=== PATIENT | female | born 1975 | race Caucasian/White ===

== ENCOUNTER 2021-03-13 11:00 | Outpatient (REF) | payer OTHER, SELFPAY ==
[2021-03-13 11:03] LABS: MANUAL DIFF FLAG NO
[2021-03-13 11:18] LABS: Basophils Percent Auto 0.6 % (0-2); Eosinophils Absolute Auto 0.2 X10*3/uL (0.0-0.4); Eosinophils Percent Auto 5.5 % (0-4); Hematocrit 38.4 % (37.0-47.0); Hemoglobin 12.9 g/dl (12.0-16.0); Imm Gran Abs Auto 0.01 X10*3/uL (0.00-0.03); Imm Gran Pct Auto 0.3 % (0.0-0.4); Lymphocytes Absolute Auto 1.3 X10*3/uL (1.2-4.9); Lymphocytes Percent Auto 38.3 % (20-40); Mean Corpuscular HGB Conc 33.6 g/dl (31.0-35.0); Mean Corpuscular Hemoglobin 33.9 pg (27.0-33.0); Mean Corpuscular Volume 100.8 fL (80.0-98.0); Mean Platelet Volume 9.5 fL (9.4-12.3); Monocytes Absolute Auto 0.3 X10*3/uL (0.1-1.2); Monocytes Percent Auto 8.1 % (2-11); Neutrophils Absolute Auto 1.6 x10*3/uL (2.0-8.3); Neutrophils Percent Auto 47.2 % (45-73); Platelet Count 258 X10*3/uL (160-400); Red Blood Count 3.81 X10*6/uL (4.20-5.50); Red Cell Distribution Width 11.9 % (11.0-16.0); White Blood Count 3.5 X10*3/uL (4.8-10.8)
[2021-03-13 11:36] LABS: Estimated Average Glucose 94 mg/dL; Hemoglobin A1c % 4.9 %
[2021-03-13 11:45] LABS: Appearance Urine CLEAR; Color Urine YELLOW; Glucose Urine UA NEG (NEG); Leukocyte Esterase Urine NEG (NEG); Nitrite Urine NEG (NEG); PH 7.5 (5.0-8.0); Urine Blood TRACE (NEG); Urine Ketones NEG (NEG); Urine Protein NEG (NEG-TRACE)
[2021-03-13 11:46] LABS: Alanine Aminotransferase 36 U/L (0-31); Albumin Level 3.9 g/dL (3.5-5.0); Alkaline Phosphatase 47 U/L (39-117); Anion Gap 9 (12-20); Aspartate Amino Transferase 26 U/L (5-31); Bilirubin Total 0.6 mg/dL (0.0-1.0); Blood Urea Nitrogen 7 mg/dL (9-16); Calcium 9.3 mg/dL (8.4-10.2); Carbon Dioxide 28 mmol/L (22-29); Chloride 105 mmol/L (96-108); Cholesterol 211 mg/dL; Creatinine Urine 192.23 mg/dL; Estimated Glomerular Filt Rate > 60; Glucose Fasting 101 mg/dL (60-99); HDL Cholesterol 74 mg/dL; LDL Cholesterol Calculated 126 mg/dl; Microalbum/Creatinine Ratio Ur 4.6 ug/mg cr; Potassium 4.3 mmol/L (3.3-5.1); Sodium 138 mmol/L (135-145); Total Protein 6.4 g/dL (6.5-8.0); Triglycerides 55 mg/dL
[2021-03-13 11:59] LABS: RBC Urine 0-2 /HPF (0); Squamous Epithelial Cell Urine TRACE /LPF; WBC Urine 0-2 /HPF (0-4)
[2021-03-13 12:00] LABS: Mucus Urine 1+ /LPF
== END 2021-03-13 11:01 | disposition home or self-care (01) ==
LOC: HO.LNP 11:00
PROVIDERS: Visit Provider Internal Medicine
DX: Z00.00 Encounter for general adult medical examination without abnormal findings (principal); R73.09 Other abnormal glucose; D72.820 Lymphocytosis (symptomatic)
CPT/HCPCS: 80053; 80061; 81001; 82043; 83036; 85025

== ENCOUNTER 2021-03-17 10:10 | Outpatient (REF) | payer OTHER, SELFPAY ==
[2021-03-17 10:13] LABS: MANUAL DIFF FLAG NO
[2021-03-17 10:24] LABS: Basophils Percent Auto 0.6 % (0-2); Eosinophils Absolute Auto 0.2 X10*3/uL (0.0-0.4); Eosinophils Percent Auto 4.6 % (0-4); Hematocrit 38.7 % (37.0-47.0); Hemoglobin 13.3 g/dl (12.0-16.0); Imm Gran Abs Auto 0.01 X10*3/uL (0.00-0.03); Imm Gran Pct Auto 0.3 % (0.0-0.4); Lymphocytes Absolute Auto 1.2 X10*3/uL (1.2-4.9); Mean Corpuscular HGB Conc 34.4 g/dl (31.0-35.0); Mean Corpuscular Hemoglobin 34.3 pg (27.0-33.0); Mean Corpuscular Volume 99.7 fL (80.0-98.0); Mean Platelet Volume 9.2 fL (9.4-12.3); Monocytes Absolute Auto 0.3 X10*3/uL (0.1-1.2); Monocytes Percent Auto 9.5 % (2-11); Neutrophils Absolute Auto 1.5 x10*3/uL (2.0-8.3); Platelet Count 276 X10*3/uL (160-400); Red Blood Count 3.88 X10*6/uL (4.20-5.50); Red Cell Distribution Width 11.8 % (11.0-16.0); White Blood Count 3.3 X10*3/uL (4.8-10.8)
== END 2021-03-17 10:11 | disposition home or self-care (01) ==
LOC: HO.LNP 10:10
PROVIDERS: Visit Provider Internal Medicine
DX: D72.820 Lymphocytosis (symptomatic) (principal)
CPT/HCPCS: 85025

== ENCOUNTER → 2021-03-23 13:48 | Outpatient (BNVA) | payer OTHER, SELFPAY | PROVIDERS: PCP Internal Medicine; Referring Provider Internal Medicine; Visit Provider Internal Medicine | DX: R07.2 Precordial pain (principal) | CPT/HCPCS: 93005 ==

== ENCOUNTER 2021-04-13 11:33 | Outpatient (REF) | payer OTHER, SELFPAY ==
[2021-04-13 11:36] LABS: MANUAL DIFF FLAG NO
[2021-04-13 11:55] LABS: Basophils Percent Auto 0.7 % (0-2); Eosinophils Absolute Auto 0.1 X10*3/uL (0.0-0.4); Eosinophils Percent Auto 3.6 % (0-4); Hematocrit 38.3 % (37.0-47.0); Hemoglobin 12.8 g/dl (12.0-16.0); Lymphocytes Absolute Auto 1.2 X10*3/uL (1.2-4.9); Lymphocytes Percent Auto 39.1 % (20-40); Mean Corpuscular HGB Conc 33.4 g/dl (31.0-35.0); Mean Corpuscular Hemoglobin 33.6 pg (27.0-33.0); Mean Corpuscular Volume 100.5 fL (80.0-98.0); Mean Platelet Volume 9.4 fL (9.4-12.3); Monocytes Absolute Auto 0.3 X10*3/uL (0.1-1.2); Monocytes Percent Auto 9.4 % (2-11); Neutrophils Absolute Auto 1.5 x10*3/uL (2.0-8.3); Neutrophils Percent Auto 47.2 % (45-73); Platelet Count 276 X10*3/uL (160-400); Red Blood Count 3.81 X10*6/uL (4.20-5.50); Red Cell Distribution Width 11.9 % (11.0-16.0); White Blood Count 3.1 X10*3/uL (4.8-10.8)
== END 2021-04-13 11:34 | disposition home or self-care (01) ==
LOC: HO.LNP 11:33
PROVIDERS: PCP Internal Medicine; Visit Provider Internal Medicine
DX: D72.820 Lymphocytosis (symptomatic) (principal)
CPT/HCPCS: 85025

== ENCOUNTER → 2021-05-03 09:23 | Outpatient (REF) | payer OTHER, SELFPAY ==
--- NOTE | 2021-05-03 09:26 | CA_ITS ---
Acquisition Time: 2021-05-03 10:25:24 Total Exercise Time: 00:11:56 Test Indications: Chest Pain Medications: PAROXITINE BUPROPION Protocol: VJ Max HR: 173 BPM 98% of Pred: 176 BPM Max BP: 122/058 mmHG Max Work Load: 13.7 METS Exercise tress test with exercise 11 min 56 sec of Vj protocol, without anginal symptoms, with isolated PVC, with blunted BP response to exercise with max BP 116/40 during exercise, without EKG changes meeting criteria for ischemia. Test reviewed with Dr Mariee. Referred By: Wilfred Maguire Overread By: ALIN CASTELAN
== END ==
LOC: HO.CARD 09:23
PROVIDERS: PCP Internal Medicine; Visit Provider Internal Medicine
DX: R07.2 Precordial pain (principal)
CPT/HCPCS: 93017

== ENCOUNTER → 2021-05-05 13:57 | Outpatient (REF) | payer OTHER, SELFPAY ==
--- NOTE | 2021-05-05 13:59 | CA_ITS ---
Transthoracic Echocardiogram Patient (Last, First, Middle): Nava Diaz, Gender: Female Date of : 1975 Age: 45 Procedure Date: 05/05/2021 Procedure Type: Transthoracic Echocardiogram Location: OP Height: 180.34 cm Weight: 79.38 kg BSA: 1.99 m2 Heart Rate: bpm BP: 98 / 64 mmHg Reimbursement Director: BAHMAN Referring MD: Wilfred Maguire MD Symptoms: R07.2 - Precordial pain Study Quality: Fair Conclusions: - Normal left ventricular size, thickness, systolic function, and wall motion. The visually estimated ejection fraction is between 55-60%. - Normal right ventricular cavity size and systolic function. Findings Left Ventricle Normal left ventricular size, thickness, systolic function, and wall motion. The visually estimated ejection fraction is between 55-60%. Diastolic function is normal for age. Right Ventricle Normal right ventricular cavity size and systolic function. Atria Both atria are normal in size. Aortic Valve Normal aortic valve structure and function. There is no aortic valve stenosis. There is no aortic valve regurgitation. Mitral Valve Normal mitral valve structure and function. There is no mitral valve regurgitation. There is no mitral valve stenosis. Pulmonic Valve The pulmonic valve is likely normal. Tricuspid Valve Normal tricuspid valve structure and function. There is trace tricuspid valve regurgitation. Normal right atrial pressure. There is no evidence of pulmonary hypertension. Great Vessels All visible segments of the aorta are normal in size. The visualized portions of the pulmonary artery and branches are normal. Venous The inferior vena cava is normal in size and collapses greater than 50% with inspiration. Pericardium/Pleural There is no evidence of pericardial effusion. Prior Study Comparison No prior study available for comparison. Measurements 2D Linear Measurements IVSd: 0.61 0.6-0.9/0.6-1.0 cm LVIDd: 5.99 3.9-5.3/4.2-5.9 cm LVIDd Index: 3.01 2.4-3.2/2.2-3.1 cm/m2 LVIDs: 4.32 2.0-3.6 cm LVPWd: 0.62 0.7-1.1 cm LA Diam: 3.10 2.7-3.8/3.0-4.0 cm LAIDs Index: 1.56 1.5-2.3 cm/m2 LV Mass: 168.23 67-162/88-224 g LV Mass Index: 84.54 43-95/49-115 g/m2 LVOT Diam: 2.10 3.0+(-)1.3 cm 2D Systolic Function EF 4C: 65.60 >55% EF 2C: 63.10 >55% EF BiP: 64.40 >55% Mitral Valve MV Pk E: 0.76 MV PK A: 0.62 MV Decel Time: 211.00 E/A: 1.20 E'Lateral: 11.10 E'Medial: 9.79 E/E' Med: 7.80 E/E' Lat: 6.80 PHT: 62.00 MVA PHT: 3.55 Decel Pasco: 3.60 Aortic Valve AoV Pk Dio: 1.40 AoV Mn Dio: 1.03 AoV VTI: 0.35 AoV Pk Grad: 8.00 Aov Mn Grad: 5.00 YUNI Cont.VTI: 2.20 LVOT LVOT Pk Dio: 0.94 LVOT Mn Dio: 0.67 LVOT VTI: 0.22 LVOT Pk Grad: 4.00 LVOT Mn Grad: 2.00 LVOT Diam: 2.10 LVOT Area: 3.46 Diastolic Function MV Pk E: 0.76 MV Pk A: 0.62 E/A: 1.20 E'Medial: 9.79 E/E' Med: 7.80 E' Laterial: 11.10 E/E' Lat: 6.80 Right Ventricle TAPSE (mm): 21.20 TVS' Dio: 11.90 Tricuspid Valve TR Pk Dio: 1.97 TR Pk Grad: 16.00 RA Press: 3.00 RVSP: 19.00 Great Vessels Aorta Sinus of Valsalva: 3.20 2.0-3.5 cm Ao Asc: 2.80 2.1-3.4 cm Ao Arch: 3.10 Updated in Other Vendor System with Status of Final Ramin Mariee MD electronically signed on 05/06/2021 4:24:17 PM with status of Final
== END ==
LOC: HO.CARD 13:57
PROVIDERS: PCP Internal Medicine; Visit Provider Internal Medicine
DX: R07.2 Precordial pain (principal)
CPT/HCPCS: 93306

== ENCOUNTER → 2021-05-31 12:39 | Outpatient (BNVA) | payer OTHER, SELFPAY | PROVIDERS: PCP Internal Medicine; Referring Provider Internal Medicine; Visit Provider Internal Medicine | DX: Z13.89 Encounter for screening for other disorder (principal) ==

== ENCOUNTER 2022-10-26 12:07 | Outpatient (REF) | payer OTHER, SELFPAY ==
[2022-10-26 12:14] LABS: MANUAL DIFF FLAG NO
[2022-10-26 12:21] LABS: Basophils Percent Auto 0.7 % (0-2); Eosinophils Absolute Auto 0.2 X10*3/uL (0.0-0.4); Eosinophils Percent Auto 4.1 % (0-4); Hematocrit 39.3 % (37.0-47.0); Hemoglobin 13.3 g/dl (12.0-16.0); Lymphocytes Absolute Auto 1.5 X10*3/uL (1.2-4.9); Lymphocytes Percent Auto 36.3 % (20-40); Mean Corpuscular HGB Conc 33.8 g/dl (31.0-35.0); Mean Corpuscular Hemoglobin 33.4 pg (27.0-33.0); Mean Corpuscular Volume 98.7 fL (80.0-98.0); Mean Platelet Volume 9.2 fL (9.4-12.3); Monocytes Absolute Auto 0.4 X10*3/uL (0.1-1.2); Monocytes Percent Auto 8.5 % (2-11); Neutrophils Absolute Auto 2.1 x10*3/uL (2.0-8.3); Neutrophils Percent Auto 50.4 % (45-73); Platelet Count 274 X10*3/uL (160-400); Red Blood Count 3.98 X10*6/uL (4.20-5.50); Red Cell Distribution Width 11.9 % (11.0-16.0); White Blood Count 4.1 X10*3/uL (4.8-10.8)
[2022-10-26 12:44] LABS: Appearance Urine Clear; Color Urine Yellow; Glucose Urine UA Negative (Negative); Leukocyte Esterase Urine Trace (Negative); Nitrite Urine Negative (Negative); Specific Gravity - Urine 1.015 (1.005-1.025); UMIC TRIGGER UACC YES; Urine Blood Large (3+) (Negative); Urine Ketones Negative (Negative); Urine Protein Negative (Neg-Trace)
[2022-10-26 12:47] LABS: Estimated Average Glucose 91 mg/dL; Hemoglobin A1c % 4.8 % (<6.0)
[2022-10-26 12:54] LABS: Bacteria Urine None Seen (None Seen); Hyaline Casts Urine 0-2 /LPF (0-2); WBC Urine 0-5 /HPF (0-5)
[2022-10-26 13:06] LABS: Creatinine Urine 108.23 mg/dL; Microalbum/Creatinine Ratio Ur 5.5 ug/mg cr (<30)
[2022-10-26 13:22] LABS: Alanine Aminotransferase 20 U/L (0-31); Albumin Level 3.8 g/dL (3.5-5.0); Alkaline Phosphatase 51 U/L (39-117); Anion Gap 10 (12-20); Aspartate Amino Transferase 21 U/L (5-31); Bilirubin Total 0.7 mg/dL (0.0-1.0); Blood Urea Nitrogen 8 mg/dL (9-16); Carbon Dioxide 26 mmol/L (22-29); Chloride 107 mmol/L (96-108); Cholesterol 213 mg/dL (<200); Estimated Glomerular Filt Rate > 60; Glucose Fasting 97 mg/dL (60-99); HDL Cholesterol 79 mg/dL (>40); LDL Cholesterol Calculated 120 mg/dL (<100); Potassium 4.2 mmol/L (3.3-5.1); Sodium 139 mmol/L (135-145); Total Protein 6.6 g/dL (6.5-8.0); Triglycerides 71 mg/dL (<150)
== END 2022-10-26 12:08 | disposition home or self-care (01) ==
LOC: HO.LNP 12:07
PROVIDERS: Visit Provider Internal Medicine
DX: Z00.00 Encounter for general adult medical examination without abnormal findings (principal); R73.03 Prediabetes; D72.820 Lymphocytosis (symptomatic)
CPT/HCPCS: 80053; 80061; 81001; 82043; 83036; 85025

== ENCOUNTER 2022-11-02 15:47 | Outpatient (REF) | payer OTHER, SELFPAY ==
[2022-11-02 15:55] LABS: Appearance Urine Clear; Color Urine Yellow; Glucose Urine UA Negative (Negative); Leukocyte Esterase Urine Negative (Negative); Nitrite Urine Negative (Negative); Urine Blood Negative (Negative); Urine Ketones Negative (Negative); Urine Protein Negative (Neg-Trace)
[2022-11-02 15:59] LABS: Bacteria Urine Trace (None Seen); Hyaline Casts Urine 0-2 /LPF (0-2); RBC Urine 0-2 /HPF (0-2); WBC Urine 0-5 /HPF (0-5)
== END 2022-11-02 15:48 | disposition home or self-care (01) ==
LOC: HO.LNP 15:47
PROVIDERS: Visit Provider Internal Medicine
DX: R31.0 Gross hematuria (principal)
CPT/HCPCS: 81001

== ENCOUNTER 2023-11-01 10:54 | Outpatient (REF) | payer OTHER, SELFPAY ==
[2023-11-01 11:01] LABS: MANUAL DIFF FLAG NO
[2023-11-01 11:27] LABS: Basophils Percent Auto 1.1 % (0-2); Eosinophils Absolute Auto 0.2 X10*3/uL (0.0-0.4); Eosinophils Percent Auto 4.1 % (0-4); Hematocrit 39.4 % (37.0-47.0); Hemoglobin 13.5 g/dl (12.0-16.0); Imm Gran Abs Auto 0.01 X10*3/uL (0.00-0.03); Imm Gran Pct Auto 0.3 % (0.0-0.4); Lymphocytes Absolute Auto 1.4 X10*3/uL (1.2-4.9); Lymphocytes Percent Auto 37.8 % (20-40); Mean Corpuscular HGB Conc 34.3 g/dl (31.0-35.0); Mean Corpuscular Hemoglobin 33.9 pg (27.0-33.0); Mean Platelet Volume 9.2 fL (9.4-12.3); Monocytes Absolute Auto 0.4 X10*3/uL (0.1-1.2); Monocytes Percent Auto 11.1 % (2-11); Neutrophils Absolute Auto 1.7 x10*3/uL (2.0-8.3); Neutrophils Percent Auto 45.6 % (45-73); Platelet Count 237 X10*3/uL (160-400); Red Blood Count 3.98 X10*6/uL (4.20-5.50); White Blood Count 3.7 X10*3/uL (4.8-10.8)
[2023-11-01 11:41] LABS: Alanine Aminotransferase 14 U/L (0-31); Albumin Level 3.9 g/dL (3.5-5.0); Alkaline Phosphatase 49 U/L (39-117); Anion Gap 8 (12-20); Aspartate Amino Transferase 16 U/L (5-31); Bilirubin Total 0.7 mg/dL (0.0-1.0); Blood Urea Nitrogen 8 mg/dL (9-16); Calcium 9.1 mg/dL (8.4-10.2); Carbon Dioxide 29 mmol/L (22-29); Chloride 106 mmol/L (96-108); Cholesterol 254 mg/dL (<200); Estimated Glomerular Filt Rate > 60; Glucose Fasting 103 mg/dL (60-99); HDL Cholesterol 76 mg/dL (>40); LDL Cholesterol Calculated 166 mg/dL (<100); Potassium 3.9 mmol/L (3.3-5.1); Sodium 139 mmol/L (135-145); Total Protein 6.5 g/dL (6.5-8.0); Triglycerides 64 mg/dL (<150)
[2023-11-01 11:52] LABS: Appearance Urine Clear; Color Urine Yellow; Glucose Urine UA Negative (Negative); Leukocyte Esterase Urine Small (1+) (Negative); Nitrite Urine Negative (Negative); PH 7.5 (5.0-9.0); Specific Gravity - Urine 1.015 (1.005-1.025); UMIC TRIGGER UACC YES; Urine Blood Negative (Negative); Urine Ketones Negative (Negative); Urine Protein Negative (Neg-Trace)
[2023-11-01 12:05] LABS: Bacteria Urine 1+ (None Seen); Hyaline Casts Urine 0-2 /LPF (0-2); RBC Urine 0-2 /HPF (0-2); UACC Culture Trigger YES; WBC Urine 0-5 /HPF (0-5)
[2023-11-01 15:19] LABS: Estimated Average Glucose 94 mg/dL; Hemoglobin A1c % 4.9 % (<6.0)
[2023-11-01 15:23] LABS: Creatinine Urine 139.43 mg/dL; Microalbumin Urine < 5.0 mg/L
== END 2023-11-01 10:55 | disposition home or self-care (01) ==
LOC: HO.LNP 10:54
PROVIDERS: Visit Provider Internal Medicine
DX: Z00.00 Encounter for general adult medical examination without abnormal findings (principal); R73.09 Other abnormal glucose; D72.820 Lymphocytosis (symptomatic); R82.90 Unspecified abnormal findings in urine
CPT/HCPCS: 80053; 80061; 81001; 82043; 82570; 83036; 85025; 87086

== ENCOUNTER 2024-12-21 10:22 | Outpatient (REF) | payer OTHER, SELFPAY ==
[2024-12-21 10:25] LABS: MANUAL DIFF FLAG NO
[2024-12-21 10:57] LABS: Appearance Urine Clear; Glucose Urine UA Negative (Negative); PH 8.0 (5.0-9.0); Specific Gravity - Urine 1.015 (1.005-1.025); UMIC TRIGGER UACC YES
[2024-12-21 11:03] LABS: Hematocrit 39.4 % (37.0-47.0); Hemoglobin 13.3 g/dl (12.0-16.0); Imm Gran Abs Auto 0.01 X10*3/uL (0.00-0.03); Imm Gran Pct Auto 0.3 % (0.0-0.4); Lymphocytes Absolute Auto 1.3 X10*3/uL (1.2-4.9); Mean Corpuscular HGB Conc 33.8 g/dl (31.0-35.0); Mean Corpuscular Hemoglobin 32.8 pg (27.0-33.0); Mean Corpuscular Volume 97.3 fL (80.0-98.0); NRBC Abs Auto 0.000 X10*3/uL (0.0-0.012); NRBC Pct Auto 0.0 /100WBC (0.0-0.2); Platelet Count 274 X10*3/uL (160-400); Red Blood Count 4.05 X10*6/uL (4.20-5.50); White Blood Count 3.4 X10*3/uL (4.8-10.8)
[2024-12-21 11:14] LABS: Alanine Aminotransferase 17 U/L (0-31); Albumin Level 4.0 g/dL (3.5-5.0); Alkaline Phosphatase 48 U/L (39-117); Anion Gap 12 (12-20); Aspartate Amino Transferase 20 U/L (5-31); Blood Urea Nitrogen 7 mg/dL (9-16); Calcium 8.6 mg/dL (8.4-10.2); Carbon Dioxide 25 mmol/L (22-29); Chloride 105 mmol/L (96-108); Cholesterol 251 mg/dL (<200); Estimated Glomerular Filt Rate > 60; HDL Cholesterol 72 mg/dL (>40); Potassium 4.0 mmol/L (3.3-5.1); Sodium 138 mmol/L (135-145); Total Protein 6.4 g/dL (6.5-8.0); Triglycerides 63 mg/dL (<150)
== END 2024-12-21 10:23 | disposition home or self-care (01) ==
LOC: HO.LNP 10:22
PROVIDERS: Visit Provider Internal Medicine
DX: Z00.00 Encounter for general adult medical examination without abnormal findings (principal); D72.820 Lymphocytosis (symptomatic); R73.09 Other abnormal glucose; Z13.6 Encounter for screening for cardiovascular disorders
CPT/HCPCS: 80053; 80061; 81001; 82043; 82570; 83036; 85025

== ENCOUNTER 2025-02-22 12:44 | Outpatient (AMB) | payer OTHER, SELFPAY ==
--- OUTSIDE RECORDS SUMMARY | 2024-06-01 04:04 | XMS_ITS ---
Author Organization Ambrosio Álvarez MD Address [address] [place] [address] [place] [phone] Care Team Providers Care Injection Molding Technician Name Role Phone Ambrosio Álvarez Primary Care Provider REASON FOR VISIT ER Visit rec'd Encounters Encounter Location Date Provider Diagnosis Ambrosio Álvarez MD [address] [place] [address] [address] [place] [phone] 06/01/2024 Ambrosio Álvarez Plan Of Treatment Next Appt Details Provider Name:Ambrosio Landrum ier, 12/24/2025 07:45:00 AM, [address] [place] [address], [place] [address], [place], [place], [phone], Provider Name:Ambrosio Landrum ier, 12/31/2025 01:00:00 PM, [address] [place] [address], [place] [address], [place], [place], [phone], Progress Notes * Naav DIAZ LDOB: [birth year] (48 yo F)Acc No.[id number]:06/01/2024 Patient: Inessa HILLsilvio Casillas :1975 A ge:48 Y S ex:Female Address:[address] [place], [place] [address] [address] * true * Date: Generated for Printi ng/Faxing/eTransmitting on: 04/25/2024 03:52 PM EST
--- OUTSIDE RECORDS SUMMARY | 2024-06-15 04:00 | XMS_ITS ---
Author Organization Ambrosio Álvarez MD Address [address] [place] [phone] Care Team Providers Care Photogrammetric Surveyor Name Role Phone Ambrosio Álvarez Primary Care Provider REASON FOR VISIT New Refill Request Medications Medication SIG (Take, Route, Frequency, Duration) Notes Start Date End Date Status Valtrex 1 GM 2 tablets Orally twi ce a day for one day only for 1 days 02/23/2011 Active Encounters Encounter Location Date Provider Diagnosis Ambrosio Álvarez MD [address] [place], [place] [address]te [address] [place] [phone] 06/15/2024 Ambrosio Álvarez Plan Of Treatment Medication Medication Name Sig Start Date Stop Date Notes Valtrex 1 GM 2 tablets Orally twi ce a day for one day only for 1 days 02/23/2011 Next Appt Details Provider Name:Ambrosio peterson, 12/24/2025 07:45:00 AM, [address] [place] [address], [phone], Provider Name:Ambrosio peterson, 12/31/2025 01:00:00 PM, [address] [place] [address], [phone], Progress Notes * Nava DIAZ LDOB: [birth year] (48 yo F)Acc No.[id number]:06/15/2024 Patient: Gail LUANNANava :1975 A ge:48 Y S ex:Female Address:[address] [place] [address], [place] [address] * Refills Refill Valtrex Tablet, 1 GM, Orally, 4, 2 tablets, twice a day for one day only, 1 days, Refills=3 * true * Date: Generated for Johnson monreal/Dorota/Carine on: 04/25/2024 03:51 PM EST
--- OUTSIDE RECORDS SUMMARY | 2024-07-01 02:21 | XMS_ITS ---
Author Organization Ambrosio Álvarez MD Address [address] [place] [address] [place] [phone] Care Team Providers Care School Age Teacher Name Role Phone Ambrosio Álvarez Primary Care Provider [phone] REASON FOR VISIT New Referral Request Encounters Encounter Location Date Provider Diagnosis Ambrosio Álvarez MD [address] [place] [address] [place] [phone] 07/01/2024 Ambrosio Álvarez Plan Of Treatment Next Appt Details Provider Name:Ambrosio Landrum ier, 12/24/2025 07:45:00 AM, [address] [place] [address], [place] [address], [place], [place], [phone], Provider Name:Ambrosio Landrum ier, 12/31/2025 01:00:00 PM, [address] [place] [address], [place] [address], [place], [place], [phone], Progress Notes * Nava DIAZ LDOB: [birth year] (48 yo F)Acc No.[id number]:07/01/2024 Patient: Gail DALLASNava :1975 A ge:48 Y S ex:Female Address:[address] [place], [place] [address] [address] * true * Date: Generated for Printi ng/Faxing/eTransmitting on: 04/25/2024 03:51 PM EST
--- OUTSIDE RECORDS SUMMARY | 2024-09-03 09:21 | XMS_ITS ---
Author Organization Ambrosio Álvarez MD Address [address] [place] [address] [place] [phone] Care Team Providers Care Pressing Machine Operator Name Role Phone Ambrosio Álvarez Primary Care Provider REASON FOR VISIT FYI Encounters Encounter Location Date Provider Diagnosis Ambrosio Álvarez MD [address] [place] [address] [address] [place] [phone] 09/03/2024 Ambrosio Álvarez Plan Of Treatment Next Appt Details Provider Name:Ambrosio Landrum ier, 12/24/2025 07:45:00 AM, [address] [place] [address], [place] [address], [place], [place], [phone], Provider Name:Ambrosio Landrum ier, 12/31/2025 01:00:00 PM, [address] [place] [address], [place] [address], [place], [place], [phone], Progress Notes * Nava DIAZ LDOB: [birth year] (49 yo F)Acc No.[id number]:09/03/2024 Patient: Gail DALLASNava :1975 A ge:49 Y S ex:Female Address:[address] [place], [place] [address] [address] * true * Date: Generated for Printi ng/Faxing/eTransmitting on: 04/25/2024 03:52 PM EST
--- OUTSIDE RECORDS SUMMARY | 2024-09-07 05:30 | XMS_ITS ---
Author Organization Ambrosio Álvarez MD Address [address] [place] [address] [place] [phone] Care Team Providers Care Dietary Director Name Role Phone Ambrosio Álvarez Primary Care Provider REASON FOR VISIT RE:Dermatology Appt Encounters Encounter Location Date Provider Diagnosis Ambrosio Álvarez MD [address] [place] [address] [place] [phone] 09/07/2024 Ambrosio Álvarez Plan Of Treatment Next Appt Details Provider Name:Ambrosio Landrum ier, 12/24/2025 07:45:00 AM, [address] [place] [address], [place] [address], [place], [place], [phone], Provider Name:Ambrosio Landrum ier, 12/31/2025 01:00:00 PM, [address] [place] [address], [place] [address], [place], [place], [phone], Progress Notes * Nava DIAZ LDOB: [birth year] (49 yo F)Acc No.[id number]:09/07/2024 Patient: Inessa HILLsilvio Casillas :1975 A ge:49 Y S ex:Female Address:[address] [place], [place] [address] [address] * true * Date: Generated for Printi ng/Faxing/eTransmitting on: 04/25/2024 03:51 PM EST
--- OUTSIDE RECORDS SUMMARY | 2024-12-12 13:27 | XMS_ITS ---
Author Organization Ambrosio Álvarez MD Address [address] [place] [address] [place] [phone] Care Team Providers Care International Logistics Coordinator Name Role Phone Ambrosio Álvarez Primary Care Provider [phone] REASON FOR VISIT rescheduling annual physiccal Encounters Encounter Location Date Provider Diagnosis Ambrosio Álvarez MD [address] [place] [address] [place] [phone] 12/12/2024 Ambrosio Álvarez Plan Of Treatment Next Appt Details Provider Name:Ambrosio Landrum ier, 12/24/2025 07:45:00 AM, [address] [place] [address], [facility], [place], [place], [phone], Provider Name:Ambrosio Landrum ier, 12/31/2025 01:00:00 PM, [address] [place] [address], [place] [address], [place], [place], [phone], Progress Notes * Nava DIAZ LDOB: [birth year] (49 yo F)Acc No.[id number]:12/12/2024 Patient: Inessa HILLsilvio Casillas :1975 A ge:49 Y S ex:Female Address:[address] [place], [place] [address] [address] * true * Date: Generated for Printi ng/Faxing/eTransmitting on: 04/25/2024 03:51 PM EST
--- OUTSIDE RECORDS SUMMARY | 2024-12-21 02:45 | XMS_ITS ---
Author Organization Ambrosio Álvarez MD Address [address] [place], [place] [phone] Care Team Providers Care Textile Machinery Sales Representative Name Role Phone Ambrosio Álvarez Primary Care Provider Results Component Value Reference Range Notes Complete Blood Count Auto Di ff Reviewed date:12/21/2024 05:36:18 PM Interpretation: Performing Lab:[facility], [address] [place] [phone] Notes/Report: White Blood Count 3.4 4.8-10.8 X10*3/uL Red Blood Count 4.05 4.20-5.50 X10*6/uL Hemoglobin 13.3 12.0-16.0 g/dl Hematocrit 39.4 37.0-47.0 % Mean Corpuscular Volume 97.3 80.0-98.0 fL Mean Corpuscular Hemoglobin 32.8 27.0-33.0 pg Mean Corpuscular HGB Conc 33.8 31.0-35.0 g/dl Red Cell Distribution Width 12.0 11.0-16.0 % Platelet Count 274 160-400 X10*3/uL Mean Platelet Volume 9.2 9.4-12.3 fL Neutrophils Percent Auto 48.8 45-73 % Imm Gran Pct Auto 0.3 0.0-0.4 % Lymphocytes Percent Auto 37.9 20-40 % Monocytes Percent Auto 7.7 2-11 % Eosinophils Percent Auto 4.1 0-4 % Basophils Percent Auto 1.2 0-2 % NRBC Pct Auto 0.0 0.0-0.2 /100WBC Neutrophils Absolute Auto 1.7 2.0-8.3 x10*3/u L Imm Gran Abs Auto 0.01 0.00-0.03 X10*3/uL Lymphocytes Absolute Auto 1.3 1.2-4.9 X10*3/u L Monocytes Absolute Auto 0.3 0.1-1.2 X10*3/uL Eosinophils Absolute Auto 0.1 0.0-0.4 X10*3/u L Basophils Absolute Auto 0.0 0.0-0.2 X10*3/uL NRBC Abs Auto 0.000 0.0-0.012 X10*3/uL Comprehensive [place]. Panel Fa st Reviewed date:12/21/2024 12:33:43 PM Interpretation: Performing Lab:[address] [phone] Notes/Report: Sodium 138 135-145 mmol/L Potassium 4.0 3.3-5.1 mmol/L Chloride 105 96-108 mmol/L Carbon Dioxide 25 22-29 mmol/L Anion Gap 12 12-20 Blood Urea Nitrogen 7 9-16 mg/dL Creatinine 0.95 0.5-1.4 mg/dL Estimated Glomerular Filt Rate > 60 Chronic Kidney Disease: Estimated GFR < 60 mL/min/1.73m2 Severe Kidney Disease: Estimated GFR < 15 mL/min/1.73m2 Glucose Fasting 104 60-99 mg/dL A fasting glucose from 100-125 mg/dl is considered impaired (pre-diabetes). Calcium 8.6 8.4-10.2 mg/dL Bilirubin Total 0.5 0.0-1.0 mg/dL Aspartate Amino Transferase 20 5-31 U/L Alanine Aminotransferase 17 0-31 U/L Total Protein 6.4 6.5-8.0 g/dL Albumin Level 4.0 3.5-5.0 g/dL Alkaline Phosphatase 48 39-117 U/L Lipid Panel Reviewed date:12/21/2024 12:35:01 PM Interpretation: Performing Lab:[facility], [address] [place] [phone] Notes/Report: Triglycerides 63 <150 mg/dL Desirable Triglyceride: less than 150 mg/dL Borderline High Triglyceride 150-199 mg/dL High Triglyceride: 200-499 mg/dL Very High Triglyceride: greater than or equal to 5OO mg/dL Cholesterol 251 <200 mg/dL Desirable Cholesterol: less than 200 mg/dL Borderline High Cholesterol: 200-239 mg/dL High Cholesterol: greater than 239 mg/dL LDL Cholesterol Calculated 167 <100 mg/dL Desirable LDL: less than 100 mg/dL Near Optimal/Above Optimal LDL: 110-129 mg/dL Borderline High LDL: 130-159 mg/dL High LDL: 160-189 mg/dL Very High LDL: greater than or equal to 190 mg/dL HDL Cholesterol 72 >40 mg/dL Desirable HDL: greater than 40 mg/dL Note: This HDL assay may give artificially low results in patients with liver disease. Microalbumin, Random Reviewed date:12/21/2024 12:35:09 PM Interpretation: Performing Lab:[facility], [address] [place] [phone] Notes/Report: Creatinine Urine 141.91 Microalbumin Urine < 5.0 Microalbum/Creatinine Ratio Ur TNP <30 ug/mg cr Unable to calculate albumin/creatinine ratio due to low microalbumin or creatinine result. Hemoglobin A1c Reviewed date:12/21/2024 12:21:00 PM Interpretation: Performing Lab:[facility], [address] [place] [phone] Notes/Report: Hemoglobin A1c % 5.2 <6.0 % Hemoglobin A1C Reference Range Adults: 4.8 - 6.0 % Non diabetic: < 6.0 % Goal: < 7.0 % Additional Action Suggested: > 8.0 % Note: Hemoglobin A1c results are invalid for patients with abnormal amounts of HbF. Blood transfusions may impact the HbA1c concentration in the patient sample. Estimated Average Glucose 103 eAG = Estimated average glucose which is %A1C expressed as average glucose, using the formula of the V8E-Hffpjzm Average Glucose study (ADAG), Diabetes Care, Vol.31,#8, Oct. 2007 UA ClnCatch+Micro w/rflx Cul t Reviewed date:12/21/2024 12:34:42 PM Interpretation: Performing Lab:[facility], [address] [place] [phone] Notes/Report: [id number] Urine, Clean Catch Color Urine Yellow Appearance Urine Clear PH 8.0 5.0-9.0 Glucose Urine UA Negative Negative mg/dL Urine Blood Negative Negative Specific [place] - Urine 1.015 1.005-1.025 Urine Protein Negative Neg-Trace mg/dL Urine Ketones Negative Negative mg/dL Nitrite Urine Negative Negative Leukocyte Esterase Urine Trace Negative RBC Urine 0-2 0-2 /HPF WBC Urine 0-5 0-5 /HPF Squamous Epithelial Cell Urine 3-5 0-2 /HPF Bacteria Urine None Seen None Seen Hyaline Casts Urine 0-2 0-2 /LPF REASON FOR VISIT FASTING LABS Encounters Encounter Location Date Provider Diagnosis Ambrosio Álvarez MD [address] [place] [phone] 12/21/2024 Ambrosio Álvarez Blood tests for routine general physical examination Z00.00 ; Prediabetes R73.09 and Lymphocytosis D72.820 Assessments Encounter Date Diagnosis (ICD Code) Assessment Notes Treatment Notes Treatment Clinical Notes Section Notes 12/21/2024 Blood tests for routine general physical examination (ICD-10 - Z00.00) 12/21/2024 Prediabetes (ICD-10 - R73.09) 12/21/2024 Lymphocytosis (ICD-10 - D72.820) Plan Of Treatment Next Appt Details Provider Name:Ambrosio Landrum ier, 12/24/2025 07:45:00 AM, [address] [place] [address], [phone], Provider Name:Ambrosio Landrum ier, 12/31/2025 01:00:00 PM, [address] [place] [address], [phone], Progress Notes * Nava DIAZ LDOB: [birth year] (49 yo F)Acc No.[id number]:12/21/2024 Progress Note Patient: Nava HILL Provider: Gail Álvarez MD :1975 A ge:49 Y S ex:Female Date:12/21/2024 Address:[address] [place] [address], [facility] Subjective: * Chief Complaints: * 1 . FASTING LABS. * Medical History: Objective: * Vitals: Assessment: * Assessment: 1. B lood tests for routine general physical examination - Z00.00 (Primary) 2 .?Prediabetes - R73.09 3 . L ymphocytosis - D72.820 Plan: * Treatment: 2. P rediabetes L AB: Complete Blood Count Auto Diff (Collection Date & Time - 12/21/2024 07:45 AM) L AB: Comprehensive [place]. Panel Fast (Collection Date & Time - 12/21/2024 07:45 AM) L AB: Lipid Panel (Collection Date & Time - 12/21/2024 07:45 AM) L AB: Microalbumin, Random (Collection Date & Time - 12/21/2024 07:45 AM) L AB: Hemoglobin A1c (Collection Date & Time - 12/21/2024 07:45 AM) L AB: UA ClnCatch+Micro w/rflx Cult (Collection Date & Time - 12/21/2024 07:45 AM) 3. L ymphocytosis L AB: Complete Blood Count Auto Diff (Collection Date & Time - 12/21/2024 07:45 AM) L AB: Comprehensive [place]. Panel Fast (Collection Date & Time - 12/21/2024 07:45 AM) L AB: Lipid Panel (Collection Date & Time - 12/21/2024 07:45 AM) L AB: Microalbumin, Random (Collection Date & Time - 12/21/2024 07:45 AM) L AB: Hemoglobin A1c (Collection Date & Time - 12/21/2024 07:45 AM) L AB: UA ClnCatch+Micro w/rflx Cult (Collection Date & Time - 12/21/2024 07:45 AM) * Procedure Codes: 3 6415 VENIPUNCT, ROUTINE* * * The named appointment provid er may or may not be the originator of this progress note, and it is not deemed complete until electronically signed by the appointment provider. Sign off status: Pending * Provider: Gail Álvarez MD Date: 1 Generated for Johnson monreal/Dorota/Carine on: 1 04/25/2024 03:52 PM EST
--- OUTSIDE RECORDS SUMMARY | 2024-12-29 08:00 | XMS_ITS ---
Author Organization Ambrosio Álvarez MD Address [address] [place], [place] [phone] Care Team Providers Care Parcel Post Officer Name Role Phone Ambrosio Álvarez Primary Care Provider Allergies Allergen (clinical drug ingredient) Drug/Non Drug Allergy documented on EMR Reaction Allergy Type Onset Date Status compazine (uncoded) couldnot open mouth Allergy Active REASON FOR VISIT ANNUAL EXAM Medications Medication SIG (Take, Route, Frequency, Duration) Notes Start Date End Date Status Omeprazole 20 MG 1 capsule 30 minutes before morning meal Orally Once a day 05/16/2021 Not-Taking Valtrex 1 GM 2 tablets Orally twi ce a day for one day only for 1 days 02/23/2011 Active PARoxetine Mesylate 10 MG 1 tablet in the morning Orally Once a day Active buPROPion HCl ER (SR) 200 MG TAKE 1 TABLET BY MOUTH DAILY Orally once a day Active Immunizations Vaccine Route Administration Date Status Comme nts Fluarix Quadrivalent - 150 Unknown 12/29/2024 Refused Social History Tobacco Use: Social History Observation Description Date Details (start date - stop date) Never Smoker NA - NA Tobacco Use/Smoking Question Answer Notes Patient is a nonsmoker Additional Findings: Tobacco Non-User Cu rrent non-smoker, currently using no form of tobacco Alcohol Screen Question Answer Notes Did you have a drink containing alcohol in the p ast year? No Points 0 Interpretation Negative Vital Signs Blood pressure systolic 100 mm Hg 12/30/19 25 Blood pressure diastolic 58 mm Hg 025 Height 71 in 12/29/2024 Weight 183 lbs 12/29/2024 BMI 25.52 kg/m2 12/29/2024 weight is up 6 pounds since 12-27-23 Encounters Encounter Location Date Provider Diagnosis Ambrosio Álvarez MD [address] [place] [address] [place] [phone] 12/29/2024 Ambrosio Álvarez Adult general medical examination Z00.00 ; Right lower quadrant pain R10.31 ; Prediabetes R73.09 ; Obsessive-compulsive disorder, unspecified type F42.9 and Depression screening Z13.31 Assessments Encounter Date Diagnosis (ICD Code) Assessment Notes Treatment Notes Treatment Clinical Notes Section Notes 12/29/2024 Adult general medical examination (ICD-10 - Z00.00) labs reviewed and discussed with patient 12/29/2024 Right lower quadrant pain (ICD-10 - R10.31) order faxed to [facility] , pending diagnostic testing 12/29/2024 Prediabetes (ICD-10 - R73.09) stable, no need for medication at this time 12/29/2024 Obsessive-compul sive disorder, unspecified type (ICD-10 - F42.9) stabe, will continue current regiment 12/29/2024 Depression screening (ICD-10 - Z13.31) negative screen Plan Of Treatment Medication Medication Name Sig Start Date Stop Date Notes PARoxetine Mesylate 10 MG 1 tablet in th e morning Orally Once a day buPROPion HCl ER (SR) 200 MG TAKE 1 TABL ET BY MOUTH DAILY Orally once a day Treatment Notes Assessment Notes Adult general medical examination labs r eviewed and discussed with patient Right lower quadrant pain order faxed to [facility] , pending diagnostic testing Prediabetes stable, no need for medication at this time Obsessive-compulsive disorde r, unspecified type stabe, will continue current regiment Depression screening negative screen Pending Test Test Name Order Date CT ABD & PELVIS WITH CONTRAST 12/29/2024 Next Appt Details Follow Up: after ct, Reason: Provider Name:Ambrosio peterson, 12/24/2025 07:45:00 AM, [address] [place] [address], Suite [facility], [place], [place], [phone], Provider Name:Ambrosio peterson, 12/31/2025 01:00:00 PM, [address] [place] [address], [place] [address], [place], [place], [phone], Progress Notes * Nava DIAZ LDOB: [birth year] (49 yo F)Acc No.[id number]:12/29/2024 Progress Notes Patient: Nava HILL Provider: Gail Álvarez MD :1975 A ge:49 Y S ex:Female Date:12/29/2024 Address:[address] [place] [address], [id number] Subjective: * Chief Complaints: * A NNUAL EXAM * HPI: D epression Screening: PHQ-9 L ittle interest or pleasure in doing things N ot at all, F eeling down, depressed, or hopeless N ot at all, T rouble falling or staying asleep, or sleeping too much N ot at all, F eeling tired or having little energy N ot at all, P oor appetite or overeating N ot at all, F eeling bad about yourself or that you are a failure, or have let yourself or your family down N ot at all, T rouble concentrating on things, such as reading the newspaper or watching television N ot at all, M oving or speaking so slowly that other people could have noticed; or the opposite, being so fidgety or restless that you have been moving around a lot more than usual N ot at all, T houghts that you would be better off or of hurting yourself in some way N ot at all, T otal Score 0 . I nterpretation and Intervention D epression Screening Findings N egative, F ollow-Up for Depression : review of PHQ-9 found negative result, no follow-up needed. C ommunication Needs: Communication Needs D oes the patient have a hearing impairment N o, D oes the patient have a vision impairment? Y es, I f yes, what is the vision impairment? G lasses, D oes the patient have a cognition impairment? N o. S ymptom(s): patientis a 49 yo female here for annual visit with review of recent labs and follow up of chronic issues had bad chest pain and went to er. went to a masseuse who popped her scapula back and it made pop and got all better instantly g ets regular pain in rt lower quadrant. * ROS: G eneral/Constitutional: Change in appetite d enies. C hills d enies. F ever d enies. O phthalmologic: Blurred vision d enies. D ischarge d enies. P ain d enies. E NT: Decreased hearing d enies. S ore throat d enies.?Swollen glands d enies. E ndocrine: Cold intolerance d enies. E xcessive thirst d enies. H eat intolerance d enies. W eight loss d enies. R espiratory: Cough d enies. S hortness of breath at rest d enies. S hortness of breath with exertion d enies. W heezing d enies. C ardiovascular: Chest pain at rest d enies. C hest pain with exertion?denies. I rregular heartbeat d enies. S hortness of breath d enies. ? G astrointestinal: Abdominal pain d enies. C hange in bowel habits d enies. D iarrhea d enies. N ausea d enies. R ectal bleeding d enies. V omiting d enies . G enitourinary: Blood in urine d enies. D ifficulty urinating d enies. F requent urination d enies. U rinary incontinence D enies. M usculoskeletal: Painful joints d enies. W eakness d enies. ? S kin: Dry skin d enies. I tching d enies. D enies?Mole(s), changes in moles, new moles or any lesions of concern. D enies P hotosensitivity. R vivian d enies. N eurologic: Dizziness d enies. F ainting d enies. H eadache?denies. * Medical History: * Surgical History: * Hospitalization/Major Diagno stic Procedure: * Family History: F ather: alive 76 yrs, diagnosed with CHF. M other: alive 73 yrs, diagnosed with Diabetes.?2 sister(s) . 1 son(s) , 1 daughter(s) . . No pertinent family medical history, Denies mental health/substance abuse family history, No pertinent family medical history, Denies mental health/substance abuse family history. * Social History: T obacco Use: T obacco Use/Smoking P atient is a n onsmoker, A dditional Findings: Tobacco Non-User C urrent non-smoker, currently using no form of tobacco. D rugs/Alcohol: A lcohol Screen D id you have a drink containing alcohol in the past year? N o, P oints 0 , I nterpretation N egative. M iscellaneous: C affeine: yes, frequency:, 2-3 cups per day. Children: yes. Community involvements: no. Exercise: yes, 4-5 days a week, and 1 hour walks. Housing: renting. Living with: with 2 children. Marital status: . Occupation: works full-time. Pets: dogs x2 , cat x1. * Medications: T akingbuPROPion HCl ER (SR) 200 MG Tablet Extended Release 12 Hour TAKE 1 TABLET BY MOUTH DAILY Orally once a day PARoxetine Mesylate 10 MG Tablet 1 tablet in the morning Orally Once a day Valtrex 1 GM Tablet 2 tablets Orally twice a day for one day only Taking buPROPion HCl ER (SR) 200 MG Tablet Extended Release 12 Hour TAKE 1 TABLET BY MOUTH DAILY Orally once a day Taking PARoxetine Mesylate 10 MG Tablet 1 tablet in the morning Orally Once a day Taking Valtrex 1 GM Tablet 2 tablets Orally twice a day for one day only Not-Taking/PRNOmeprazole 20 MG Capsule Delayed Release 1 capsule 30 minutes before morning meal Orally Once a day Medication List reviewed and reconciled with the patientNot-Taking/PRN Omeprazole 20 MG Capsule Delayed Release 1 capsule 30 minutes before morning meal Orally Once a day Medication List reviewed and reconciled with the patient * Allergies: c ompazine: couldnot open mouth Objective: * Vitals: H t: 71, Wt: 183, BMI:25.52, BP:100/58, Wt-k.01. weight is up 6 pounds since 12-27-23. * P ast Orders: L ab:Hemoglobin A1c (Order Date - 12/21/2024) (Collection Date & Time - 12/21/2024 07:45 AM) Value Reference Range Hemoglobin A1c % 5.2 <6.0 - % Estimated Average Glucose 103 - mg/dL L ab:UA ClnCatch+Micro w/rflx Cult (Order Date - 12/21/2024) (Collection Date & Time - 12/21/2024 07:45 AM) Value Reference Range Color Urine Yellow - Appearance Urine Clear - PH 8.0 5.0-9.0 - Glucose Urine UA Negative Negative - mg/dL Urine Blood Negative Negative - Specific [place] - Urine 1.015 1.005-1.025 - Urine Protein Negative Neg-Trace - mg/dL Urine Ketones Negative Negative - mg/dL Nitrite Urine Negative Negative - Leukocyte Esterase Urine Trace A Negative - RBC Urine 0-2 0-2 - /HPF WBC Urine 0-5 0-5 - /HPF Squamous Epithelial Cell Urine 3-5 0-2 - /HP F Bacteria Urine None Seen None Seen - Hyaline Casts Urine 0-2 0-2 - /LPF L ab:Complete Blood Count Auto Diff (Order Date - 12/21/2024) (Collection Date & Time - 12/21/2024 07:45 AM) Value Reference Range White Blood Count 3.4 L 4.8-10.8 - X10*3/uL Red Blood Count 4.05 L 4.20-5.50 - X10*6/uL Hemoglobin 13.3 12.0-16.0 - g/dl Hematocrit 39.4 37.0-47.0 - % Mean Corpuscular Volume 97.3 80.0-98.0 - fL Mean Corpuscular Hemoglobin 32.8 27.0-33.0 - pg Mean Corpuscular HGB Conc 33.8 31.0-35.0 - g/ dl Red Cell Distribution Width 12.0 11.0-16.0 - % Platelet Count 274 160-400 - X10*3/uL Mean Platelet Volume 9.2 L 9.4-12.3 - fL Neutrophils Percent Auto 48.8 45-73 - % Imm Gran Pct Auto 0.3 0.0-0.4 - % Lymphocytes Percent Auto 37.9 20-40 - % Monocytes Percent Auto 7.7 2-11 - % Eosinophils Percent Auto 4.1 H 0-4 - % Basophils Percent Auto 1.2 0-2 - % NRBC Pct Auto 0.0 0.0-0.2 - /100WBC Neutrophils Absolute Auto 1.7 L 2.0-8.3 - x10* 3/uL Imm Gran Abs Auto 0.01 0.00-0.03 - X10*3/uL Lymphocytes Absolute Auto 1.3 1.2-4.9 - X10* 3/uL Monocytes Absolute Auto 0.3 0.1-1.2 - X10*3/ uL Eosinophils Absolute Auto 0.1 0.0-0.4 - X10* 3/uL Basophils Absolute Auto 0.0 0.0-0.2 - X10*3/ uL NRBC Abs Auto 0.000 0.0-0.012 - X10*3/uL L ab:Comprehensive [place]. Panel Fast (Order Date - 12/21/2024) (Collection Date & Time - 12/21/2024 07:45 AM) Value Reference Range Sodium 138 135-145 - mmol/L Bilirubin Total 0.5 0.0-1.0 - mg/dL Aspartate Amino Transferase 20 5-31 - U/L Alanine Aminotransferase 17 0-31 - U/L Total Protein 6.4 L 6.5-8.0 - g/dL Albumin Level 4.0 3.5-5.0 - g/dL Alkaline Phosphatase 48 39-117 - U/L Potassium 4.0 3.3-5.1 - mmol/L Chloride 105 96-108 - mmol/L Carbon Dioxide 25 22-29 - mmol/L Anion Gap 12 12-20 - Blood Urea Nitrogen 7 L 9-16 - mg/dL Creatinine 0.95 0.5-1.4 - mg/dL Estimated Glomerular Filt Rate > 60 - Glucose Fasting 104 H 60-99 - mg/dL Calcium 8.6 8.4-10.2 - mg/dL L ab:Lipid Panel (Order Date - 12/21/2024) (Collection Date & Time - 12/21/2024 07:45 AM) Value Reference Range Triglycerides 63 <150 - mg/dL Cholesterol 251 H <200 - mg/dL LDL Cholesterol Calculated 167 H <100 - mg/dL HDL Cholesterol 72 >40 - mg/dL L ab:Microalbumin, Random (Order Date - 12/21/2024) (Collection Date & Time - 12/21/2024 07:45 AM) Value Reference Range Creatinine Urine 141.91 - mg/dL Microalbumin Urine < 5.0 - mg/L Microalbum Creatinine Ratio Ur TNP <30 - ug/ mg cr * Examination: G eneral Examination: GENERAL APPEARANCE: w ell developed, well nourished, in no acute distress. HEAD: n ormocephalic, atraumatic. EYES: p upils equal, round, reactive to light and accommodation, sclera non-icteric. EARS: n ormal. ORAL CAVITY: m ucosa moist. THROAT: c lear. NECK/THYROID: n fredy supple, full range of motion, no cervical lymphadenopathy, no bruits. SKIN: w arm and dry, no suspicious lesions. HEART: r egular rate and rhythm, S1, S2 normal, no murmurs.? LUNGS: c lear to auscultation bilaterally. BREASTS: N o mass, no lump. ABDOMEN: s oft, nontender, nondistended, bowel sounds present, normal, no organomegaly , no masses palpable. RECTAL EXAM: d one by hand packager. FEMALE GENITOURINARY: d one by hand packager. EXTREMITIES: n o clubbing, cyanosis, or edema. NEUROLOGIC: n onfocal, motor strength normal upper and lower extremities, sensory exam intact. Assessment: * Assessment: 1. A dult general medical examination - Z00.00 (Primary) 2 . R ight lower quadrant pain - R10.31 3 . P rediabetes - R73.09 4 . O bsessive-compulsive disorder, unspecified type - F42.9 5 . D epression screening - Z13.31 Plan: * Treatment: 2. R ight lower quadrant pain I maging: CT ABD & PELVIS WITH CONTRAST Notes: order faxed to [facility] , pending diagnostic testing 3. P rediabetes Notes: stable, no need for medication at this time 4. O bsessive-compulsive disorder, unspecified type Continue buPROPion HCl ER (SR) Tablet Extended Release 12 Hour, 200 MG, TAKE 1 TABLET BY MOUTH DAILY, Orally, once a day; C ontinue PARoxetine Mesylate Tablet, 10 MG, 1 tablet in the morning, Orally, Once a day. Notes: stabe, will continue current regiment 5. D epression screening Notes: negative screen * Immunizations: Fluarix Quadrivalent - 150 (Not administered - Refused: Patient decision) * Procedure Codes: * Follow Up: a fter ct * * Sign off status: Completed true * Provider: Gail Álvarez MD Date: 1 Generated for Johnson monreal/Dorota/Raniitting on: 1 04/25/2024 03:52 PM EST History and Physical Notes * HPI (History of Present Illness) Category Sub-Category Detail Notes Category Not es Symptom(s) patientis a 49 yo female here for annual visit with review of recent labs and follow up of chronic issues had bad chest pain and went to er. went to a masseuse who popped her scapula back and it made pop and got all better instantly gets regular pain in rt lower quadrant Depression Screening PHQ-9 Little inte rest or pleasure in doing things: Not at all Feeling down, depressed, or hopeless: No t at all Trouble falling or staying asleep, or sl eeping too much: Not at all Feeling tired or having little energy: N ot at all Poor appetite or overeating: Not at all Feeling bad about yourself o r that you are a failure, or have let yourself or your family down: Not at all Trouble concentrating on thi ngs, such as reading the newspaper or watching television: Not at all Moving or speaking so slowly that other people could have noticed; or the opposite, being so fidgety or restless that you have been moving around a lot more than usual: Not at all Thoughts that you would be b funmilayo off or of hurting yourself in some way: Not at all Total Score: 0 Interpretation and Intervention Depression Raoul stern Findings: Negative Follow-Up for Depression: : review of PH Q-9 found negative result, no follow-up needed Communication Needs Communication Needs Does the patient have a hearing impairment: No Does the patient have a vision impairmen t?: Yes If yes, what is the vision impairment?: Glasses Does the patient have a cognition impair ment?: No Examination Category Sub-Category Detail Notes Category Not es General Examination GENERAL APPEARANCE: well dev eloped, well nourished, in no acute distress HEAD: normocephalic, atrau matic EYES: pupils equal, round, reactive to light and accommodation, sclera non-icteric EARS: normal THROAT: clear NECK/THYROID: neck supple, full ra nge of motion, no cervical lymphadenopathy, no bruits HEART: regular rate and rhy thm, S1, S2 normal, no murmurs LUNGS: clear to auscultatio n bilaterally ABDOMEN: soft, nontender, non distended, bowel sounds present, normal, no organomegaly , no masses palpable NEUROLOGIC: nonfocal, motor stre ngth normal upper and lower extremities, sensory exam intact SKIN: warm and dry, no patrice picious lesions EXTREMITIES: no clubbing, cyanosi s, or edema BREASTS: No mass, no lump RECTAL EXAM: done by hand packager FEMALE GENITOURINARY: done by hand packager ORAL CAVITY: mucosa moist
--- OUTSIDE RECORDS SUMMARY | 2025-01-12 07:03 | XMS_ITS ---
Author Organization Ambrosio Álvarez MD Address [address] [place] [address] [place] [phone] Care Team Providers Care Nursing Services Manager Name Role Phone Ambrosio Álvarez Primary Care Provider REASON FOR VISIT test results Encounters Encounter Location Date Provider Diagnosis Ambrosio Álvarez MD [address] [place] [address] [place] [phone] 01/12/2025 Ambrosio Álvarez Plan Of Treatment Next Appt Details Provider Name:Ambrosio Landrum ier, 12/24/2025 07:45:00 AM, [address] [place] [address], [address], [phone], Provider Name:Ambrosio Landrum ier, 12/31/2025 01:00:00 PM, [address] [place] [address], [address], [phone], Progress Notes * Nava DIAZ LDOB: [birth year] (49 yo F)Acc No.[id number]:01/12/2025 Patient: Gail DALLASNava :1975 A ge:49 Y S ex:Female Address:[address] [place], [place] [address] [place] [address] * true * Date: Generated for Printi ng/Faxing/eTransmitting on: 04/25/2024 03:51 PM EST
--- OUTSIDE RECORDS SUMMARY | 2025-01-15 09:15 | XMS_ITS ---
Author Organization Ambrosio Álvarez MD Address [address] [place], [place] [phone] Care Team Providers Care Data Operations Leader Name Role Phone Ambrosio Álvarez Primary Care Provider Allergies Allergen (clinical drug ingredient) Drug/Non Drug Allergy documented on EMR Reaction Allergy Type Onset Date Status compazine (uncoded) couldnot open mouth Allergy Active Reason For Referral Reason right lower quadrant pain Diagnosis 1 Right lower quadrant pain (R10.31) Referral Organization Ambrosio Álvarez MD Referring Provider First Name Ambrosio Referring Provider Last Name Preeti Referring Provider Speciality Internal M edicine Referred Provider Hair Guido Referred Provider Specialty Surgery General Notes Carli Santana 1 03/17/2024 02:27:49 PM >referral info faxed Referral Priority Routine Referral Appointment Date 02/22/2025 REASON FOR VISIT must see follow up appt to discuss CT abd Medications Medication SIG (Take, Route, Frequency, Duration) Notes Start Date End Date Status Omeprazole 20 MG 1 capsule 30 minutes before morning meal Orally Once a day 05/16/2021 Not-Taking Valtrex 1 GM 2 tablets Orally twi ce a day for one day only for 1 days 02/23/2011 Active buPROPion HCl ER (SR) 200 MG TAKE 1 TABLET BY MOUTH DAILY Orally once a day Active PARoxetine Mesylate 10 MG 1 tablet in the morning Orally Once a day Active Vital Signs Blood pressure systolic 92 mm Hg 01/16/20 25 Blood pressure diastolic 48 mm Hg 025 Height 71 in 01/15/2025 Weight 184 lbs 01/15/2025 BMI 25.66 kg/m2 01/15/2025 Encounters Encounter Location Date Provider Diagnosis Ambrosio Álvarez MD [address] [place] [address] [place] [phone] 01/15/2025 Ambrosio Álvarez Right lower quadrant pain R10.31 Assessments Encounter Date Diagnosis (ICD Code) Assessment Notes Treatment Notes Treatment Clinical Notes Section Notes 01/15/2025 Right lower quadrant pain (ICD-10 - R10.31) will refer her to dr lerner for question of femoral hernia Plan Of Treatment Treatment Notes Assessment Notes Right lower quadrant pain will refer her to dr lerner for question of femoral hernia Referrals Referral Date Details 01/15/2025 01/15/2025, right lo wer quadrant pain, Hair Guido Next Appt Details Provider Name:Ambrosio Landrum ier, 12/24/2025 07:45:00 AM, [address] [place] [address], [place] [address], [place], [place], [phone], Provider Name:Ambrosio Landrum ier, 12/31/2025 01:00:00 PM, [address] [place] [address], [place] [address], [place], [place], [phone], Progress Notes * KARMENNava ELLIS LDOB: [birth year] (49 yo F)Acc No.[id number]:01/15/2025 Patient: Nava HILL Provider: Gail Álvarez MD :1975 A ge:49 Y S ex:Female Date:01/15/2025 Address:[address] [place], [place] [phone] Subjective: * Chief Complaints: * m ust see follow up appt to discuss CT abd * HPI: S ymptom(s): patient is a 49 yo female here in follow up to discuss recent CT/ gets sharp intermittant pain in rt lower quadrant has been going on for over a year. * ROS: G eneral/Constitutional: Denies C hills. D enies F atigue. D enies F ever. D enies H eadache. E NT: Denies S ore throat. R espiratory: Denies C ough. D enies S hortness of breath at rest. D enies S hortness of breath with exertion. G astrointestinal: Denies D iarrhea. D enies N ausea. * Medical History: * Surgical History: * Hospitalization/Major Diagno stic Procedure: * Medications: T akingValtrex 1 GM Tablet 2 tablets Orally twice a day for one day only buPROPion HCl ER (SR) 200 MG Tablet [...] in the morning Orally Once a day Not-Taking/PRNOmeprazole 20 MG Capsule Delayed Release 1 capsule 30 minutes before morning meal Orally Once a day Not-Taking/PRN Omeprazole 20 MG Capsule Delayed Release 1 capsule 30 minutes before morning meal Orally Once a day * Allergies: c ompazine: couldnot open mouthyes[Allergies Verified] Objective: * Vitals: H t: 71, Wt: 184, BMI:25.66, BP:92/48, Wt-k.46. * Examination: G eneral Examination: GENERAL APPEARANCE: a lert, well hydrated, in no distress.? SKIN: g ood turgor. ABDOMEN: a bnormal with tenderness in the inguinal area on right. Assessment: * Assessment: 1. R ight lower quadrant pain - R10.31 (Primary) Plan: * Treatment: * Procedure Codes: * * Sign off status: Completed true * Provider: Gail Álvarez MD Date: 03/17/2024 Generated for Johnson monreal/Dorota/Carine on: 04/25/2024 03:52 PM EST History and Physical Notes * HPI (History of Present Illness) Category Sub-Category Detail Notes Category Not es Symptom(s) patient is a 49 yo female here in follow up to discuss recent CT/ gets sharp intermittant pain in rt lower quadrant has been going on for over a year Examination Category Sub-Category Detail Notes Category Not es General Examination GENERAL APPEARANCE: alert, w ell hydrated, in no distress ABDOMEN: abnormal with tender ness in the inguinal area on right SKIN: good turgor Consultation Request Notes Referral Date Referring Provider Referred Provider Not es 01/15/2025 Ambrosio Álvarez John right low er quadrant pain
--- NOTE | 2025-02-22 13:02 | A.OFFVIS_ITS ---
Vital Signs 3 02/22/25 13:08 Height 5 ft 11 in Weight 185 lb BMI 25.8 BP 112/61 Blood Pressure Location Lt brachial Position Sitting Pulse 75 Intake Visit Reasons: ? femoral hernia Intake Note: Patient is seen in office for evaluation of a femoral hernia. Pt c/o: suspected hernia due to intermittent pain in the right side of the abdomen, onset over a year, denies n/v/d/c Face Boss Required: No Accompanied by: Self / Same As Patient Allergies No Known Allergies Allergy (Verified 02/22/25 13:09) Medication List - Last Reconciled 02/22/25 by Hair Guido MD bupropion HCl SR (Wellbutrin SR) 100 mg PO DAILY paroxetine HCl (Paxil) 10 mg PO DAILY HPI Comments Details: 49-year-old female patient presenting for evaluation of a possible femoral hernia. The pain is located in the right side with an occasional lump being palpated in this location. The lump seems to be more symptomatic when she lays on her left side but then reduces when she is laying on her back. She denies any inciting events. The pain is episodic and does not occur daily but occasionally. She denies any surgery in this location. A previous CT abdomen and pelvis at an outside institution reveals constipation but no evidence of abdominal wall hernias. And a recent examination she was noted to have the lump in the right abdomen in the right lower quadrant. She presents today for further evaluation of this lump. [facility] Medical History Anxiety and depression Surgical History No pertinent past surgical history Family History Father Pacemaker Heart disease Mother No known health problems Social History Alcohol intake: never Patient Tobacco Use Status: Former Tobacco user Review of Systems Const All systems reviewed & are unremarkable except as noted in HPI and below Physical Exam Vital Signs: Last Vital Signs Pulse 75 02/22/25 13:08 BP 112/61 02/22/25 13:08 BMI result Body Mass Index 25.8 Const General: cooperative and no acute distress Nutritional Appearance: well nourished Orientation/consciousness: patient oriented x3 Limitations: no limitations HEENT Head: Yes normocephalic and Yes atraumatic Ears: hearing grossly normal bilaterally Resp Effort & Inspection: normal respiratory effort, no audible wheezes, no cough and no respiratory distress Cardio Jugular venous distension: no JVD GI Other: Patient was examined in the standing position with Valsalva maneuvers. Examination in the along the lateral margin of the rectus muscle on the right side does reveal an area of tenderness as noted below with faintly palpable fullness with Valsalva maneuvers. This reduces spontaneously with relaxation. No symptoms are noted in the similar location in the left side. Inspection: Yes normal to inspection Abdomen image: 2 1. Site of palpable tenderness in the right lower quadrant just lateral to the rectus muscle suggestive of a spigelian hernia 2. Lateral margin of the rectus muscle Skin Other: Warm, dry, no rash Neuro General: patient oriented x3 Extrem General: Yes no clubbing, cyanosis or edema Assessment & Plan Assessment & Plan (1) Spigelian hernia: Code(s): K43.9 - Ventral hernia without obstruction or gangrene Category: Medical Plan 49-year-old female patient presenting with complaints of and occasional lump which occurs in the right lower quadrant which is occasionally associated with discomfort. Examination today does reveal an area of fullness in the right lower quadrant lateral to the rectus muscle which is suggestive of a reducible spigelian hernia. This has obviously quite small as it did not show up on the CT scan and can safely be observed. I recommended that she call however if the symptoms seemed to be worsening or becoming more frequent to arrange for exploration and repair of the spigelian hernia. She expressed understanding and agrees with the plan. Coding Level of Care Code New Pt Level 4 (34535) Diagnoses Spigelian hernia K43.9
[2025-02-22 13:08] VITALS: BP 112/61; PULSE 75; BMI 25.8
--- OUTSIDE RECORDS SUMMARY | 2025-02-22 15:52 | XMS_ITS | Clinical Summary ---
Author Organization [facility] Address [address] [place] [id number] Phone Care Team Providers Care Public Health Policy Analyst Name Role Phone Ambrosio Álvarez MD Primary Care Provider Allergies No known active allergies Medications buPROPion (WELLBUTRIN SR) 200 MG SR 12 hr tablet Take 200 mg by mouth daily. 04/14/2024 Active PARoxetine (PAXIL) 10 MG tablet Take 10 mg by mouth nightly at bedtime. at bedtime. 04/14/2024 Active orphenadrine (NORFLEX) 100 mg tablet Take 1 tablet (100 mg total) by mouth 2 (two) times a day. 20 tablet 05/30/2024 Active ibuprofen (ADVIL,MOTRIN) 600 MG tablet Take 1 tablet (600 mg total) by mouth every 6 (six) hours as needed for pain (specific location in comments). 21 tablet 05/30/2024 Active Social History Tobacco Use Types Packs/Day Years Used Date Smoking Tobacco: Never Assessed Education Answer Date Recorded Are you interested in more education? Not on bonnie e 06/29/2022 Are you concerned about learning? Not on file 06/29/2022 No 06/29/2022 No 06/29/2022 Digital Access Answer Date Recorded No 07/30/2022 No 07/30/2022 No 07/30/2022 Reliable internet access at home? Not on file 07/30/2022 Device with a working camera? Not on file Intimate Partner Violence Answer Date R ecorded Are you denied basic needs s uch as food, clothing, or medical care? No 05/30/2024 In the past 12 months have y ou been in a relationship with a person who hurts, threatens, or tries to control you? No 05/30/2024 Are you denied basic needs s uch as food, clothing, or medical care? No 05/30/2024 In the past 12 months have y ou been in a relationship with a person who hurts, threatens, or tries to control you? No 05/30/2024 Comments Unknown Sex and Gender Information Value Date Recorded Sex Assigned at Female 05/29/2024 6:42 AM EDT Legal Sex Female 9:26 PM EDT Gender Identity Female 05/29/2024 6:42 AM EDT Sexual Orientation Don't know 05/29/2024 6: 42 AM EDT Last Filed Vital Signs Vital Sign Reading Time Taken Comments Blood Pressure 108/79 05/30/2024 6:45 PM EDT Pulse 57 05/30/2024 6:45 PM EDT Temperature 36.2 C (97.1 F) 05/30/2024 2:24 PM EDT Respiratory Rate 15 05/30/2024 6:45 PM EDT Oxygen Saturation 100% 05/30/2024 6:45 PM EDT Inhaled Oxygen Concentration - - Weight 81.6 kg (180 lb) 05/29/2024 6:50 AM EDT Height 180.3 cm (5' 11 ) 05/29/2024 6:50 AM EDT Body Mass Index 25.1 05/29/2024 6:50 AM EDT Plan of Treatment Health Maintenance Due Date Last Done Comments Adult Td,Tdap Booster 1976 DEPRESSION SCREENING 1988 SMOKING Hx and SMOKELESS TOB ACCO SCREENING 1989 HEPATITIS C SCREENING 1994 HIV ONE-TIME SCREENING (18-6 5 YEARS) 1994 PAP SMEAR 1997 MAMMOGRAM 2016 COLOGUARD 2021 COLONOSCOPY 2021 COLORECTAL CANCER SCREENING 2021 FIT TEST 2021 FOBT 2021 SIGMOIDOSCOPY 2021 VIRTUAL COLONOSCOPY 2021 INFLUENZA VACCINE (#1) 2024 COVID-19 VACCINE (2 - 2024-2 6 season) 2024 07/22/2020 LIPID PANEL 03/07/2025 03/07/2020 SCREENING FOR DIABETES 05/31/2027 05/30/2024 HEPATITIS A VACCINES Aged Out No long er eligible based on patient's age to complete this topic HIB VACCINES Aged Out No longer eligi ble based on patient's age to complete this topic MENINGOCOCCAL VACCINES (ACWY) Aged Out No longer eligible based on patient's age to complete this topic MENINGOCOCCAL VACCINES (B) Aged Out N o longer eligible based on patient's age to complete this topic PNEUMOCOCCAL VACCINES (0-49 years) Aged Out No longer eligible based on patient's age to complete this topic Medical Devices Not on file Procedures Procedure Name Priority Date/Time Associated Diagnosis Comments LIPID PANEL Routine 03/07/2020 8:18 AM EST Diabetes mellitus, latent Persistent lymphocytosis from Last 3 Months or Most Recently Relevant to Health Maintenance Results * (ABNORMAL) Lipid panel (03/07/2020 8:18 AM EST) HDL 88 mg/dL [facility] Comment: Interpretation <40 mg/dL: Low HDL cholesterol (major risk factor for CHD) Greater than or equal to 60 mg/dL: High HDL cholesterol ( negative risk factor for CHD) HDL - cholesterol is affected by a number of factors, e.g. smoking, excerise, hormones, sex and age. CHOLESTEROL 225 0 - 240 mg/dL [facility] TRIGLYCERIDES 69 30 - 160 mg/dL [facility] LDL 123 50 - 129 mg/dL [facility] Comment: LDL levels in terms of risk for coronary heart disease: <100 mg/dL: Optimal 100-129 mg/dL: Near or above optimal 130-159 mg/dL: Borderline high 160-189 mg/dL: High >190 mg/dL: Very High CARDIAC RISK RATIO 2.6(L) 3.3 - 4.4 C [facility] Blood 03/07/2020 8:18 AM EST 03/07/2020 8:24 AM EST us Ambrosio Álvarez MD LAB BLOOD BKR ORDERABLE S Final Result [facility] [address] [place] [address] from Last 3 Months or Most Recently Relevant to Health Maintenance Insurance [facility] [facility] Care Teams Public Health Policy Analyst Relationship Specialty Start Date End Date Ambrosio Álvarez MD [address] [place] [address] [place] [address] PCP - General 12/18/16 Additional Source Comments The information contained in this document represents components of the legal health record. It is not the complete legal health record.[facility]
--- OUTSIDE RECORDS SUMMARY | 2025-02-22 15:52 | XMS_ITS | Patient Health Record ---
Author Organization Ambrosio Álvarez MD Address [address] [place], [place] [id number] Care Team Providers Care Miniature Train Driver Name Role Phone Ambrosio Álvarez Primary Care Provider Allergies Allergen (clinical drug ingredient) Drug/Non Drug Allergy documented on EMR Reaction Allergy Type Onset Date Status compazine (uncoded) couldnot open mouth Allergy Active Results Component Value Reference Range Notes Complete Blood Count Auto Di ff Reviewed date:12/21/2024 05:36:18 PM Interpretation: Performing Lab:[facility], [address] [place] [phone] Notes/Report: White Blood Count 3.4 4.8-10.8 X10*3/uL [...] NRBC Abs Auto 0.000 0.0-0.012 X10*3/uL Comprehensive [place]. Panel Fa Reviewed date:12/21/2024 12:33:43 PM Interpretation: Performing Lab:[address] [phone] Notes/Report: Sodium 138 135-145 mmol/L Potassium 4.0 [...] Panel Reviewed date:12/21/2024 12:35:01 PM Interpretation: Performing Lab:[facility], [address] [place] [phone] Notes/Report: Triglycerides 63 <150 mg/dL Desirable Triglyceride: [...] Random Reviewed date:12/21/2024 12:35:09 PM Interpretation: Performing Lab:[address] [phone] Notes/Report: Creatinine Urine 141.91 Microalbumin Urine < 5.0 Microalbum/Creatinine Ratio Ur TNP <30 ug/mg cr Unable to calculate albumin/creatinine ratio due to low microalbumin or creatinine result. Hemoglobin A1c Reviewed date:12/21/2024 12:21:00 PM Interpretation: Performing Lab:[facility], [address] [place] [phone] Notes/Report: Hemoglobin A1c % 5.2 <6.0 % [...] average glucose, using the formula of the N7O-Renhcvy Average Glucose study (ADAG), Diabetes Care, Vol.31,#8, Oct. 2007 UA ClnCatch+Micro w/rflx Cul t Reviewed date:12/21/2024 12:34:42 PM Interpretation: Performing Lab:[facility], [address] [place] [phone] Notes/Report: [id number] Urine, Clean Catch Color Urine Yellow Appearance Urine Clear PH 8.0 5.0-9.0 Glucose Urine UA Negative Negative mg/dL Urine Blood Negative Negative Specific [place] - Urine 1.015 1.005-1.025 Urine Protein Negative Neg-Trace mg/dL Urine Ketones Negative Negative mg/dL Nitrite Urine Negative Negative Leukocyte Esterase Urine Trace Negative RBC Urine 0-2 0-2 /HPF WBC Urine 0-5 0-5 /HPF Squamous Epithelial Cell Urine 3-5 0-2 /HPF Bacteria Urine None Seen None Seen Hyaline Casts Urine 0-2 0-2 /LPF Hold Gold Reviewed date:12/21/2024 12:20:21 PM Interpretation: Performing Lab:[facility], [address] [place] [phone] Notes/Report: Hold Gold See Note Specimen held untested for 24 hours; Call to request Chemistry testing. Reason For Referral Reason Sun spot on fore hea d Diagnosis 1 Discoloration of ski n of flank resembling ecchymosis (L81.9) Referral Organization Ambrosio Álvarez MD Referring Provider First Name Ambrosio Referring Provider Last Name Preeti Referring Provider Speciality Internal M edicine Referred Provider JONO DERMATOLOG Y Referred Provider Specialty Dermatology General Notes Carli Santana 0 07/24/2024 12:58:55 PM > [place] Referral # [id number] visits 2024 to 10-22-2024, Carli Santana 07/24/2024 01:01:52 PM > info faxed, Carli Santana 08/07/2024 10:44:00 AM > was told by office they are back logged, Carli Santana 09/03/2024 01:33:44 PM >let message for patient to call office, Carli Santana 09/07/2024 03:10:28 PM >will redo ins referral, Carli Santana 11/26/2024 12:59:45 PM >referral [facility] [phone] 6visits 11-26-24 to 02-24-25 Referral Priority Routine Referral Appointment Date 12/05/2024 Reason right lower quadrant pain Diagnosis 1 Right lower quadrant pain (R10.31) Referral Organization Ambrosio Álvarez MD Referring Provider First Name Ambrosio Referring Provider Last Name Preeti Referring Provider Speciality Internal M edicine Referred Provider Hair Guido Referred Provider Specialty Surgery General Notes Carli Santana 1 03/17/2024 02:27:49 PM >referral info faxed Referral Priority Routine Referral Appointment Date 02/22/2025 Medications Medication SIG (Take, Route, Frequency, Duration) [...] the morning Orally Once a day Active Immunizations Vaccine Route Administration Date Status Comme nts Flu Vaccine ID Intradermal 10/30/2010 Administered Fluarix Quadrivalent IM Intramuscular 03/13/2021 Administe red SARS-COV-2 Moderna Unknown 07/22/2020 Administered SARS-COV-2 Moderna Unknown 08/19/2020 Administered Fluarix Quadrivalent - 150 Unknown 12/29/2024 Refused [...] ast year? No Points 0 Interpretation Negative Problems Problem Type SNOMED Code ICD Code Onset Dates Problem Status W/U Status Risk Notes Problem Acid reflux (614279500) Acid reflux (K21.9) Active confirmed Problem 27973911 Lymphocytosis (D72.820) Active confirmed Problem 5715170 Prediabetes (R73.09) Active confirmed Problem 031133462 Obsessive-compul s troy disorder, unspecified type (F42.9) Active confirmed Vital Signs Blood pressure diastolic 48 mm Hg 01/15/2025 Height 71 in 01/15/2025 Blood pressure systolic 92 mm Hg 01/15/2025 Weight 184 lbs 01/15/2025 BMI 25.66 kg/m2 01/15/2025 Encounters Encounter Location Date Provider Diagnosis Ambrosio Álvarez MD [address] [place] [address] [id number] 12/21/2024 Ambrosio Álvarez Blood tests for routine general physical examination Z00.00 ; Prediabetes R73.09 and Lymphocytosis D72.820 Ambrosio Álvarez MD [address] [place] [address] [id number] 12/29/2024 Ambrosio Álvarez Adult general medica l examination Z00.00 ; Right lower quadrant pain R10.31 ; Prediabetes R73.09 ; Obsessive-compulsive disorder, unspecified type F42.9 and Depression screening Z13.31 Ambrosio Álvarez MD [address] [place] [address] [id number] 01/15/2025 Ambrosio Álvarez Right lower quadrant pain R10.31 Ambrosio Álvarez MD [address] [place] [address] [id number] 06/01/2024 Ambrosio Álvarez MD [address] [place] [address] [id number] 05/22/2024 Ambrosio Álvarez MD [address] [place] [address] [id number] 06/15/2024 Ambrosio Álvarez MD [address] [place] [address] [id number] 07/01/2024 Ambrosio Álvarez MD [address] [place] [address] [id number] 09/03/2024 Ambrosio Álvarez MD [address] [place] [address] [id number] 09/07/2024 Ambrosio Álvarez MD [address] [place] [address] [id number] 12/12/2024 Ambrosio Álvarez MD [address] [place] [address] [id number] 01/12/2025 Ambrosio Álvarez Assessments Encounter Date Diagnosis (ICD Code) Assessment Notes Treatment Notes Treatment Clinical Notes Section Notes 12/21/2024 Blood tests for routine general physical examination (ICD-10 - Z00.00) 12/29/2024 Adult general medical examination (ICD-10 - Z00.00) labs reviewed and discussed with patient 12/29/2024 Right lower quadrant pain (ICD-10 - R10.31) order faxed to [facility] , pending diagnostic testing 01/15/2025 Right lower quadrant pain (ICD-10 - R10.31) will refer her to dr lerner for question of femoral hernia 12/21/2024 Prediabetes (ICD-10 - R73.09) 12/29/2024 Prediabetes (ICD-10 - R73.09) stable, no need for medication at this time 12/21/2024 Lymphocytosis (ICD-10 - D72.820) 12/29/2024 Obsessive-compulsi ve disorder, unspecified type (ICD-10 - F42.9) stabe, will continue current regiment 12/29/2024 Depression screening (ICD-10 - Z13.31) negative screen Plan Of Treatment Pending Test Test Name Order Date CT ABD & PELVIS WITH CONTRAST 12/29/2024 Next Appt Details Provider Name:Ambrosio Landrum ier, 12/24/2025 07:45:00 AM, [address] [place] [address], [address], [place], [place], [phone], Provider Name:Ambrosio Landrum ier, 12/31/2025 01:00:00 PM, [address] [place] [address], [address], [place], [place], [phone], Insurance Providers Payer Name Payer Address Payer Phone Subscriber Number Group Number Insured Name Patient Relationship to Insured Coverage Start Date Coverage End Date [facility] [address] [place] [id number] [phone] [id number] Nava Diaz Self - patient is the insured Medical (General) History Medical History History ICD Code cologard negative 2023
== END 2025-02-22 13:24 | disposition home or self-care (01) ==
LOC: HO.HGS 12:44
PROVIDERS: PCP Internal Medicine; Referring Provider Internal Medicine; Visit Provider Surgery
DX: K43.9 Ventral hernia without obstruction or gangrene (principal)
CPT/HCPCS: 99204